=== PATIENT | female | born 1955 | race Caucasian/White ===

== ENCOUNTER 2018-09-11 05:44 | Emergency (ER) | payer BC, OTHER ==
[~2018-09-11] VITALS: Ht 157.5 cm; Wt 57.1 kg
[2018-09-11] MEDS ORDERED: ZANTAC 150MG T150 MG PO (06:00)
[2018-09-11] MEDS ORDERED: FISH OIL 1,001000 M2 PO (06:00)
[2018-09-11 07:33] LABS: ABSOLUTE NEUTROPHILS 2.7 thou/uL (1.4-8.2); BASOPHILS 0.8 % (0.0-2.0); EOSINOPHILS 1.2 % (0.0-3.0); HEMATOCRIT 36.2 % (37.0-47.0); HEMOGLOBIN 12.6 gm/dL (12.0-15.0); LYMPHOCYTES 27.4 % (24.0-44.0); MCH 31.9 pg (26.0-34.0); MCHC 34.8 g/dL (28.0-37.0); MCV 91.8 fL (80.0-100.0); MONOCYTES 8.1 % (1.0-8.0); PLATELET COUNT 223 thou/uL (150-400); POLYS 62.5 % (36.0-66.0); RBC 3.95 mil/uL (4.20-5.00); RDW 13.2 % (10.5-14.5); WBC 4.3 thou/uL (4.0-11.0)
[2018-09-11 07:49] LABS: ANION GAP 10 mmol/L (7-16); BUN 17 mg/dL (7-18); CALCIUM 9.6 mg/dL (8.5-10.1); CHLORIDE 106 mmol/L (98-107); CO2 27 mmol/L (21-32); CREATININE 0.8 mg/dL (0.6-1.0); GLUCOSE 104 mg/dL (74-106); POTASSIUM 4.3 mmol/L (3.5-5.1); SODIUM 143 mmol/L (136-145)
[2018-09-11 07:57] LABS: TROPONIN-I <0.06 ng/mL (<0.06)
[2018-09-11] MEDS ORDERED: IBU600 MG PO (08:21)
[2018-09-11] MEDS ORDERED: SENNA-DOCUSATE1 EAC1 PO (08:21)
[2018-09-11] MEDS ORDERED: NORFLEX100 MG PO (08:21)
[2018-09-11] MEDS ORDERED: NORCO 5-325 TA1 EACH PO (08:21)
--- NOTE | 2018-09-11 08:35 | EKG ---
[place] [address] [address] [facility] [place] [address] ELECTROCARDIOGRAM REPORT Name: JOHNY ERWIN Maia Room #: [facility]#: [id number] ������������������ Admission: 09/11/18 ������������������ Attend Phys: Discharge: ������������������ Date of : 55 Report #: [id number] ����������������������������������������������������������������� [id number] THIS REPORT FOR: //name// [facility] ED Test Date: 2018-09-11 Test Time: 06:42:30 Pat Name: JOHNY ERWIN Department: Room: Gender: F Telecom Engineer: TK : 1955 Requested By: Pedro Brooks Order Number: [id number] MD: Inder Goode Measurements Intervals [place] Rate: 79 P: 58 AR: 138 QRS: -38 QRSD: 81 T: 31 QT: 394 QTc: 452 Interpretive Statements Sinus rhythm Left axis deviation No previous ECG available for comparison Electronically Signed On 09-11-2018 8:35:18 [employer] by Inder Goode [email or web address] ��������������������������������������������� <ELECTRONICALLY SIGNED> ���������������������������������������� By: Inder Goode MD, [facility] ��������������������������������������������� 09/11/18 [id number] Inder Goode MD, FACC /EPI
[2018-09-11 08:50] VITALS: BP 146/74
== END 2018-09-11 08:30 | disposition home or self-care (01) ==
LOC: ER 05:44
PROVIDERS: Emergency Medicine
DX: M25.511 Pain in right shoulder (principal); K21.9 Gastro-esophageal reflux disease without esophagitis; E78.5 Hyperlipidemia, unspecified; Z88.2 Allergy status to sulfonamides

== ENCOUNTER → 2018-09-24 | Outpatient (CLI) | payer BC, OTHER ==
[~2018-09-24] VITALS: Ht 152.4 cm; Wt 58.1 kg
[~2018-09-24] MED LIST: BIOTIN1 MG PO; CINNAMON500 MG PO; FIBER GUMMIES1 EACH PO; FISH OIL 1,001000 M2 PO; FLAX SEED OIL1000 MG PO; FLEXERIL PO; IBU600 MG PO; IBUPROFEN 600600 M1 PO; MULTI VITAMIN1 EACH PO; NORCO 5-325 TA1 EACH PO; NORFLEX100 MG PO; OXYCODONE-ACET1 EACH PO; PREDNISONE 10 M10 MG PO; PROBIOTIC1 EAC1 PO; PROTONIX40 M1 PO; RANITIDINE HCL300 MG PO; SENNA-DOCUSATE1 EAC1 PO; TUMS PO; VITAMIN B-12500 MCG PO; VITAMIN D2000 UNIT PO; VITAMIN E400 UNIT PO; ZANTAC 150MG T150 MG PO
[2018-09-24 12:56] VITALS: BP 141/85
--- NOTE | 2018-09-24 13:01 | NUR ---
Pain Clinic Assessment: 1. History of Osteoarthritis: Not Applicable History of Rheumatoid Arthritis: Not Applicable 2. Height: 5 ft. 2 in. 152.4 cm. Weight: 128.0 lb. oz. 58.060 kg. Patient's BMI: 23.4 3. Vital Signs: BP: 141/85 Pulse: 99 Resp: 14 Temp: 02 Sat: 98 ECG Mon: 4. Pain Intensity: 5 5. Fall Risk: Dizziness: N Needs help standing or walking: N Fallen in the last 3 months: N Fall risk comments: 6. Patient on Blood Thinner: None 7. History of Hypertension: N 8. Opioid Therapy greater than 6 weeks: N Opiate Contract Signed: 9. Risk Assessment Tool Provided: 0-low 10. Functional Assessment Tool: 11. Recreational Drug Use: Never Drug Type: Tobacco Use: Never Smoker Tobacco Type: Amount or Packs/day: How Many Years: Alcohol Use: Yes Frequency: Special Occasions Quant:
== END ==
LOC: PAIN 06:48
DX: M79.601 Pain in right arm (principal); M25.511 Pain in right shoulder; Z72.89 Other problems related to lifestyle; Z79.899 Other long term (current) drug therapy

== ENCOUNTER → 2018-10-08 | Outpatient (CLI) | payer BC, OTHER ==
[~2018-10-08] VITALS: Ht 157.5 cm; Wt 60.1 kg
[2018-10-08 14:17] VITALS: BP 151/97
--- NOTE | 2018-10-08 14:29 | NUR ---
Pain Clinic Assessment: 1. History of Osteoarthritis: Not Applicable History of Rheumatoid Arthritis: Not Applicable 2. Height: 5 ft. 2 in. 157.5 cm. Weight: 132.6 lb. oz. 60.147 kg. Patient's BMI: 24.2 3. Vital Signs: BP: 151/97 Pulse: 94 Resp: 16 Temp: 02 Sat: 100 ECG Mon: 4. Pain Intensity: 2 5. Fall Risk: Dizziness: N Needs help standing or walking: N Fallen in the last 3 months: N Fall risk comments: 6. Patient on Blood Thinner: None 7. History of Hypertension: N 8. Opioid Therapy greater than 6 weeks: N Opiate Contract Signed: 9. Risk Assessment Tool Provided: 0-low 10. Functional Assessment Tool: 11. Recreational Drug Use: Never Drug Type: Tobacco Use: Never Smoker Tobacco Type: Amount or Packs/day: How Many Years: Alcohol Use: Yes Frequency: Quant:
--- NOTE | 2018-10-16 07:49 | HPC ---
[facility] [place] [address] PAIN MANAGEMENT CONSULTATION Name: JOHNY ERWIN Maia Room #: REG ELMO Jose.#: [id number] Admission: 10/08/18 ������������������ Attend Phys: Kev Sevilla DO Discharge: ������������������ Date of : 55 Report #: [id number] THIS REPORT FOR: //name// CC: Kev Dudley MD DATE OF SERVICE: 10/08/2018 CHIEF COMPLAINT: Right upper extremity pain. HISTORY OF PRESENT ILLNESS: As you know, the patient is a 63-year-old female who reports acute onset of right upper extremity pain that began on 09/10/2018. She denies inciting injury or trauma. She indicates her pain intensified to the point where she sought evaluation through her PCP. She trialed conservative medication therapy, which did not provide improvement. She subsequently underwent MRI of the cervical spine that shows mild changes throughout the cervical region, but no specific stenotic lesions. She was subsequently referred to our clinic to discuss options for treatment. We saw the patient in consultation on 09/24/2018. She was given a presumptive diagnosis of cervical radiculopathy, mild cervical spondylosis with radiculopathy, mild degenerative changes of the cervical spine leading to intractable symptoms. At that visit, we discussed options for treatment including physical therapy, medication management, cervical epidural injections under fluoroscopic guidance, spinal cord stimulator therapy and surgical options, though the patient at this point is not a surgical candidate. After that stat discussion, the patient chose to begin with medication management. We started the patient on samples of Lyrica, also provided low dose opioid for pain control. She returned in followup visit today, 10/08/2018 advising us the pain scores of 2/10. She is denying any side effects to the medication and wishes to continue medication management. She indicates pain is throbbing, intermittent, stabbing and shooting, exacerbated with bending, improves with holding her arm overhead or lying flat on her back. That in conjunction with medications have improved symptoms, she returns today for adjustments in medication management. ALLERGIES: SULFA. CURRENT MEDICATIONS: Biotin, FiberCon, calcium carbonate, flaxseed oil, lactobacillus, cholecalciferol, cyanocobalamin, multivitamin, ranitidine, pantoprazole, ibuprofen, oxycodone, prednisone, cyclobenzaprine, Senokot, Lyrica. SOCIAL HISTORY: The patient denies tobacco, IV or illicit drug use. Admits to occasional alcohol beverage. She is a retail loan originator assistant, working, not receiving workmen's compensation, unaccompanied today. [address] [address] PAIN MANAGEMENT CONSULTATION Name: YAIMAJOHNY R [facility] [id number] Admission: 10/08/18 ������������������ Attend Phys: Kev Sevilla DO Discharge: ������������������ Date of : 55 Report #: [id number] IMAGING: No new imaging available. PHYSICAL EXAMINATION: VITAL SIGNS: Blood pressure 151/97, pulse is 94, respiratory rate 16 and unlabored. The patient is 100% on room air. Height 5 feet 2 inches tall, weight 132.6 pounds, BMI calculated 24.2. GENERAL: Well-developed, well-nourished, well-hydrated 63-year-old female appearing stated age, placing current pain score 2/10. HEENT: Normocephalic, atraumatic. Pupils equal, round, reactive to light. EXTREMITIES: Show no clubbing, no cyanosis, no edema. MUSCULOSKELETAL: Upper extremity strength is symmetrical 5/5, intact to light touch from C5-T1 dermatomes. Deep tendon reflexes remain symmetrical 2+/4 at biceps, brachialis and triceps. Spurling's test is equivocal right, negative left. ASSESSMENT: 1. Cervical radicular symptoms. 2. Mild displacement of cervical intervertebral disk with radiculopathy. 3. Mild cervical spondylosis with radiculopathy. 4. Mild cervical degeneration. 5. Intractable pain. PLAN: 1. The patient returns today in followup visit where we have discussed options for treatment with the patient today. Given the fact that she is reporting pain score 2/10, I do not feel interventional treatments are necessary. We would recommend the patient utilize medication management. If this is ineffective, then move forward with possible cervical epidural injection. We will provide the patient with samples of Lyrica, she can take for neuropathic pain control. Once she reaches an efficacious dose, she is to contact the clinic to advise of that dosing so that we can provide a full prescription. We have also refilled her Percocet today indicating that long-term therapy with opioid medications is not recommended nor will it be continued long-term as this is only to be used in an acute phase and not in the chronic phase of pain. 2. The patient was provided samples of Lyrica 50 mg tablets 1 tab to 2 tabs p.o. at bedtime, initially, then escalate dose as necessary for any recurrent pain. She has samples available today. 3. The patient was provided prescription of Percocet 5/325 one tab p.o. q. 6 hours p.r.n. for pain, I have given the patient #75 tablets, releasing today. She is only to take this medication when her pain is intolerable, not to rely on the medication prophylactically. 4. We will see the patient back in followup visit on an as needed basis for possible adjustments in medication therapy. Also, we will discuss the [facility] [address] [place] [address] PAIN MANAGEMENT CONSULTATION Name: JOHNY ERWIN Room #: REG [facility] Jose.#: [id number] Admission: 10/08/18 ������������������ Attend Phys: Kev Sevilla DO Discharge: ������������������ Date of : 55 Report #: [id number] possibility of having the patient undergo a cervical injection if medications are ineffective. ��������������������������������������������� <ELECTRONICALLY SIGNED> ���������������������������������������� By: Kev Sevilla DO ��������������������������������������������� 10/16/18 0749 [id number] Kev Sevilla DO /nt
== END ==
LOC: PAIN 07:19
DX: M47.22 Other spondylosis with radiculopathy, cervical region (principal); M50.10 Cervical disc disorder with radiculopathy, unspecified cervical region; G89.4 Chronic pain syndrome; Z79.899 Other long term (current) drug therapy

== ENCOUNTER → 2018-11-26 | Outpatient (CLI) | payer BC, OTHER ==
[~2018-11-26] VITALS: Ht 157.5 cm; Wt 60.1 kg
[~2018-11-26] MED LIST changes: +NEURONTIN 300300 M1 PO
[2018-11-26 08:57] VITALS: BP 133/69
--- NOTE | 2018-11-26 09:14 | NUR ---
Pain Clinic Assessment: 1. History of Osteoarthritis: Not Applicable History of Rheumatoid Arthritis: Not Applicable 2. Height: 5 ft. 2 in. 157.5 cm. Weight: 132.6 lb. oz. 60.147 kg. Patient's BMI: 24.2 3. Vital Signs: BP: 133/69 Pulse: 73 Resp: 16 Temp: 02 Sat: 100 ECG Mon: 4. Pain Intensity: 0 TODAY 5. Fall Risk: Dizziness: N Needs help standing or walking: N Fallen in the last 3 months: N Fall risk comments: 6. Patient on Blood Thinner: None 7. History of Hypertension: N 8. Opioid Therapy greater than 6 weeks: N Opiate Contract Signed: 9. Risk Assessment Tool Provided: 0-low 10. Functional Assessment Tool: 11. Recreational Drug Use: Never Drug Type: Tobacco Use: Never Smoker Tobacco Type: Amount or Packs/day: How Many Years: Alcohol Use: Yes Frequency: Quant:
--- NOTE | 2018-12-03 07:41 | HPC ---
[facility] [place] [place] [address] PAIN MANAGEMENT CONSULTATION Name: JOHNY ERWIN Maia Room #: REG Greg Garcia.#: [id number] Admission: 11/26/18 ������������������ Attend Phys: Kev Sevilla DO Discharge: ������������������ Date of : 55 Report #: [id number] THIS REPORT FOR: //name// CC: Kev Dudley MD DATE OF SERVICE: 11/26/2018 CHIEF COMPLAINT: Right upper extremity pain. HISTORY OF PRESENT ILLNESS: As you know, the patient is a 63-year-old female who reported acute onset of right upper extremity pain and paresthesias that began on 09/10/2018. She denied any injury or trauma that may have led to symptom development. Due to lack of improvement from conservative treatment options, the patient was subsequently referred to our clinic. We saw the patient in consultation on 09/24/2018 and provided prescription medication management for suspected cervical radiculopathy. She returned on 10/08/2018, received a refill of medications. She has been doing very well from a standpoint of pain control. She is now placing pain score at 0/10. She has been able to return to all activities of daily living without significant pain interference. She returns today in followup visit requesting refills of the gabapentin, which was given at our last visit. She feels the gabapentin is working well. She is taking 1 tablet in the morning and 3 tablets at night for a total of 1200 mg per day. She is denying side effects of somnolence, decrease in mental acuity, disorientation, confusion or mental slowing with the use of the therapy. ALLERGIES: SULFA. CURRENT MEDICATIONS: Biotin, FiberCon, calcium carbonate, flaxseed oil, lactobacillus, cholecalciferol, cyanocobalamin, multivitamin, ranitidine, pantoprazole, ibuprofen, oxycodone, cyclobenzaprine, Senokot and gabapentin. SOCIAL HISTORY: The patient denies tobacco, IV or illicit drug use. Admits to occasional alcoholic beverage. She is currently employed as a mortgage or loan underwriter. She is working, not receiving workmen's compensation, unaccompanied today. IMAGING: No new imaging available. PHYSICAL EXAMINATION: VITAL SIGNS: Blood pressure 133/69, pulse 73, respiratory rate 16 and unlabored. The patient is 100% on room air. Height 5 feet 2 inches tall, weight 132.6 pounds, BMI calculated 24.2. GENERAL: Well-developed, well-nourished, well-hydrated 63-year-old female, appearing her stated age, placing current pain score at 0/10. [address] [address] PAIN MANAGEMENT CONSULTATION Name: JOHNY ERWIN Maia Room #: REG [facility] Jose.#: [id number] Admission: 11/26/18 ������������������ Attend Phys: Kev Sevilla DO Discharge: ������������������ Date of : 55 Report #: [id number] HEENT: Normocephalic, atraumatic. Pupils equal, round, reactive to light. Extraocular muscles are intact. EXTREMITIES: Show no clubbing, no cyanosis and no edema. MUSCULOSKELETAL: Upper extremity strength is symmetrical, 5/5. Muscle bulk and tone equal and symmetrical when you are comparing left upper extremity to right. Spurling's test is equivocal right, negative left. Deep tendon reflexes remain 2+/4 biceps, brachioradialis and triceps. ASSESSMENT: 1. Cervical radiculopathy. 2. Mild displacement of cervical intervertebral disk with radiculopathy. 3. Mild cervical spondylosis with radiculopathy. 4. Mild cervical degeneration. 5. Chronic intractable pain. PLAN: 1. The patient returns today in followup visit having noted excellent benefit with gabapentin therapy. She wishes to continue the medication at current dosing. She is placing pain score 0/10. She reports no numbness, tingling, burning or electrical like sensations at this juncture. She is extremely pleased with response to gabapentin, wishing to continue the therapy. She is denying side effects of sleepiness, disorientation, confusion, mental slowing with its use. 2. The patient was provided prescription of gabapentin 300 mg dose 1 tablet in the morning and 3 tablets at night. She was given #120 tablets with multiple refills. The patient was advised to continue the medication for the next month. If she has continued to see good benefit, she can then try to reduce the medication to determine if her symptoms have improved. If her pain does return while reducing the medication, she is to return to this dose of medication, continue for another month, then reattempt weaning off the medication the following month. If the patient has questions on how to do that, she can contact our clinic. 3. We are pleased to see the patient has done well with medication management. We will see her back in followup visit on an as needed basis. ��������������������������������������������� <ELECTRONICALLY SIGNED> ���������������������������������������� By: Kev Sevilla DO ��������������������������������������������� 12/03/18 0741 [id number] Kev Sevilla DO /nt
== END ==
LOC: PAIN 10-15 09:00
DX: M47.22 Other spondylosis with radiculopathy, cervical region (principal); G89.4 Chronic pain syndrome; Z88.8 Allergy status to other drugs, medicaments and biological substances; Z79.899 Other long term (current) drug therapy